=== PATIENT | male | born 1940 | race Caucasian/White ===

== ENCOUNTER 2017-04-26 20:09 | Emergency (ER) | payer MEDICARE, OTHER ==
--- NOTE | 2017-04-26 20:48 | EDM.PDOC ---
ED HPI GENERAL MEDICAL PROBLEM - General Chief Complaint: Cardiovascular Problem Stated Complaint: SOB Time Seen by Provider: 04/26/17 20:37 Source of Information: Reports: Patient, Family, RN Notes Reviewed History Limitations: Reports: No Limitations - History of Present Illness INITIAL COMMENTS - FREE TEXT/NARRATIVE: 77-year-old gentleman presents emergency department day complaint of shortness of breath, he states he's had intermittent shortness of breath over the last 4- 5 days he will have multiple events during the day makes no difference if he is exerting himself or at rest the symptoms will last for anywhere from 4-5 minutes and then resolved spontaneously just as quickly as the onset. He denies any CA history does have a history of an arrhythmia several years ago which he took medication for a short period time. - Related Data Allergies Allergy/AdvReac Type Severity Reaction Status Date / Time No Known Allergies Allergy Verified 04/26/17 20:19 Home Meds: Home Meds Aspirin [Children's Aspirin] 1 tab PO DAILY 04/26/17 [History] Atenolol [Atenolol] 1 tab PO DAILY 04/26/17 [History] Chlorthalidone 1 tab PO DAILY 04/26/17 [History] Cholecalciferol (Vitamin D3) [Vitamin D3] 1 tab PO DAILY 04/26/17 [History] Fish Oil/DHA/EPA [Fish Oil 1,200 MG] 1 tab PO DAILY 04/26/17 [History] Lisinopril [Lisinopril] 1 tab PO DAILY 04/26/17 [History] amLODIPine [Norvasc] 1 tab PO DAILY 04/26/17 [History] atorvaSTATin [Lipitor] 1 tab PO DAILY 04/26/17 [History] Past Medical History HEENT History: Reports: Cataract Cardiovascular History: Reports: Arrhythmia, High Cholesterol, Hypertension Gastrointestinal History: Reports: Hemorrhoids Musculoskeletal History: Reports: Arthritis, Other (See Below) Other Musculoskeletal History: torn rotator cuff Psychiatric History: Reports: Addiction Dermatologic History: Reports: Psoriasis - Past Surgical History HEENT Surgical History: Reports: Cataract Surgery GI Surgical History: Reports: Colonoscopy Social & Family History - Tobacco Use Smoking Status *Q: Former Smoker Used Tobacco, but Quit: Yes Month Tobacco Last Used: 0 - Alcohol Use Days Per Week of Alcohol Use: 7 Number of Drinks Per Day: 3 Total Drinks Per Week: 21 - Recreational Drug Use Recreational Drug Use: No ED ROS GENERAL - Review of Systems Review Of Systems: See Below Constitutional: Reports: No Symptoms. Denies: Diaphoresis HEENT: Reports: No Symptoms Respiratory: Reports: Shortness of Breath. Denies: Wheezing, Cough, Sputum Cardiovascular: Reports: Dyspnea on Exertion, Palpitations. Denies: Chest Pain GI/Abdominal: Reports: No Symptoms. Denies: Nausea, Vomiting : Reports: No Symptoms Musculoskeletal: Reports: No Symptoms Skin: Reports: No Symptoms Neurological: Reports: No Symptoms ED EXAM, GENERAL - Physical Exam Exam: See Below Free Text/Narrative:: General: Male, not in any distress, alert and oriented x3 HEENT: head is atraumatic normocephalic, eyes pupils equal round reactive to light, sclera clear no conjunctivitis appreciated. Ears blocked by cerumen bilaterally canals are clear. Nose no septal deviation, nares are clear, no blood present. Mouth mucosa is moist and pink no erythema or exudate noted in soft palate, tongue is midline uvula is midline, dentition is intact. Neck: Supple no thyromegaly no tracheal deviation. Nodes: Cervical nodes subclavicular nodes nontender no palpable lymphadenopathy noted. Lungs: clear to auscultation bilaterally with symmetrical respirations, no adventitious noise appreciated. CV: Regular rate and rhythm S1 and S2 appreciated no murmurs rubs or gallops noted scant irregular beat is noted consistent with PBC. Abdomen: Soft, obese, nontender, no palpable masses or organomegaly appreciated , no distention no guarding bowel sounds are present, . Neuro: Cranial nerves II through XII grossly intact Skin: Warm and dry, intact Extremities: +1 edema noted bilaterally Course - Vital Signs Last Recorded V/S: Last Vital Signs Temp 99.1 F 04/26/17 20:22 Pulse 77 04/26/17 21:32 Resp 20 04/26/17 21:32 BP 149/78 H 04/26/17 21:32 Pulse Ox 93 L 04/26/17 21:32 - Orders/Labs/Meds Orders: Active Orders 24 hr Category Date Time Status Cardiac Monitoring [RC] .As Directed Care 04/26/17 20:44 Active EKG Documentation Completion [RC] ASDIRECTED Care 04/26/17 20:45 Active Ang Chest [CT] Stat Exams 04/26/17 21:42 Taken Chest 2V [CR] Stat Exams 04/26/17 20:45 Taken Iopamidol [Isovue-370 (76%)] Med 04/26/17 22:00 Active 100 ml IV . DIRECTED Sodium Chloride 0.9% [Normal Saline] 100 ml Med 04/26/17 22:00 Active IV ASDIRECTED Sodium Chloride 0.9% [Saline Flush] Med 04/26/17 21:49 Active 10 ml FLUSH ASDIRECTED PRN EKG 12 Lead [EK] Stat Ther 04/26/17 20:45 Ordered Medication Orders Sodium Chloride (Normal Saline) 100 mls @ 3 mls/sec IV ASDIRECTED KATHYA Last Admin: 04/26/17 22:04 Dose: 3 mls/sec Iopamidol (Isovue-370 (76%)) 100 ml IV . DIRECTED [facility] Last Admin: 04/26/17 22:04 Dose: 100 ml Sodium Chloride (Saline Flush) 10 ml FLUSH ASDIRECTED PRN PRN Reason: Keep Vein Open Last Admin: 04/26/17 22:04 Dose: 10 ml Labs: Laboratory Tests 04/26/17 04/26/17 04/26/17 Range/Units 20:55 20:55 20:55 WBC 9.3 (4.5-11.0) K/uL RBC 4.59 (4.30-5.90) M/uL Hgb 15.2 H (12.0-15.0) g/dL Hct 44.6 (40.0-54.0) % MCV 97 (80-98) fL MCH 33 H (27-31) pg MCHC 34 (32-36) % Plt Count 186 (150-400) K/uL Neut % (Auto) 69 H (36-66) % Lymph % (Auto) 15 L (24-44) % [place] % (Auto) 10 H (2-6) % Eos % (Auto) 6 H (2-4) % Baso % (Auto) 1 (0-1) % PT 11.0 (9.5-12.0) sec INR 1.03 (0.80-1.20) D-Dimer, Quantitative 1280 H (0.0-400.0) ng/mL Sodium (140-148) mmol/L Potassium (3.6-5.2) mmol/L Chloride (100-108) mmol/L Carbon Dioxide (21-32) mmol/L Anion Gap (5.0-14.0) mmol/L BUN (7-18) mg/dL Creatinine (0.8-1.3) mg/dL Est Cr Clr Drug Dosing mL/min Estimated GFR (MDRD) (>60) Glucose (74-106) mg/dL Calcium (8.5-10.1) mg/dL Total Bilirubin (0.2-1.0) mg/dL AST (15-37) U/L ALT (12-78) U/L Alkaline Phosphatase (46-116) U/L Troponin I (0.000-0.056) ng/mL NT-Pro-B Natriuret Pep (5-450) pg/mL Total Protein (6.4-8.2) g/dL Albumin (3.4-5.0) g/dL Globulin (2.3-3.5) g/dL Albumin/Globulin Ratio (1.2-2.2) Urine Color Urine Appearance Urine pH (4.5-8.0) Ur Specific [place] (1.008-1.030) Urine Protein (NEGATIVE) mg/dL Urine Glucose (UA) (NEGATIVE) mg/dL Urine Ketones (NEGATIVE) mg/dL Urine Occult Blood (NEGATIVE) Urine Nitrite (NEGAITVE) Urine Bilirubin (NEGATIVE) Urine Urobilinogen (NORMAL) mg/dL Ur Leukocyte Esterase (NEGATIVE) Urine RBC (0-5) Urine WBC (0-5) Ur Epithelial Cells Amorphous Sediment Urine Bacteria Urine Mucus 04/26/17 04/26/17 Range/Units 20:55 21:41 WBC (4.5-11.0) K/uL RBC (4.30-5.90) M/uL Hgb (12.0-15.0) g/dL Hct (40.0-54.0) % MCV (80-98) fL MCH (27-31) pg MCHC (32-36) % Plt Count (150-400) K/uL Neut % (Auto) (36-66) % Lymph % (Auto) (24-44) % [place] % (Auto) (2-6) % Eos % (Auto) (2-4) % Baso % (Auto) (0-1) % PT (9.5-12.0) sec INR (0.80-1.20) D-Dimer, Quantitative (0.0-400.0) ng/mL Sodium 137 L (140-148) mmol/L Potassium 3.7 (3.6-5.2) mmol/L Chloride 100 (100-108) mmol/L Carbon Dioxide 30 (21-32) mmol/L Anion Gap 10.7 (5.0-14.0) mmol/L BUN 22 H (7-18) mg/dL Creatinine 1.0 (0.8-1.3) mg/dL Est Cr Clr Drug Dosing 64.84 mL/min Estimated GFR (MDRD) > 60 (>60) Glucose 99 (74-106) mg/dL Calcium 9.7 (8.5-10.1) mg/dL Total Bilirubin 1.3 H (0.2-1.0) mg/dL AST 33 (15-37) U/L ALT 28 (12-78) U/L Alkaline Phosphatase 70 (46-116) U/L Troponin I < 0.017 (0.000-0.056) ng/mL NT-Pro-B Natriuret Pep 318 (5-450) pg/mL Total Protein 7.9 (6.4-8.2) g/dL Albumin 3.7 (3.4-5.0) g/dL Globulin 4.2 H (2.3-3.5) g/dL Albumin/Globulin Ratio 0.9 L (1.2-2.2) Urine Color Yellow Urine Appearance Clear Urine pH 7.0 (4.5-8.0) Ur Specific [place] 1.015 (1.008-1.030) Urine Protein 30 H (NEGATIVE) mg/dL Urine Glucose (UA) Normal (NEGATIVE) mg/dL Urine Ketones Negative (NEGATIVE) mg/dL Urine Occult Blood Negative (NEGATIVE) Urine Nitrite Negative (NEGAITVE) Urine Bilirubin Negative (NEGATIVE) Urine Urobilinogen Normal (NORMAL) mg/dL Ur Leukocyte Esterase Negative (NEGATIVE) Urine RBC Not seen (0-5) Urine WBC 0-5 (0-5) Ur Epithelial Cells Rare Amorphous Sediment Rare Urine Bacteria Rare Urine Mucus Not seen Meds: Medications Generic Name Dose Route Start Last Admin Trade Name Freq PRN Reason Stop Dose Admin Sodium Chloride 100 mls @ 3 mls/sec 04/26/17 22:00 04/26/17 22:04 Normal Saline IV 3 mls/sec ASDIRECTED KATHYA Administration Iopamidol 100 ml 04/26/17 22:00 04/26/17 22:04 Isovue-370 (76%) IV 100 ml . DIRECTED KATHYA Administration Sodium Chloride 10 ml 04/26/17 21:49 04/26/17 22:04 Saline Flush FLUSH 10 ml ASDIRECTED PRN Administration Keep Vein Open Departure - Departure Time of Disposition: 22:49 Disposition: Home, Self-Care 01 Condition: Good Clinical Impression: SOB (shortness of breath) Referrals: Pedrito Salazar MD [Primary Care Provider] - Forms: ED Department Discharge Additional Instructions: Please keep your follow-up appointment with your primary care provider this week , call return to the emergency department worsening of symptoms - My Orders Last 24 Hours: My Active Orders 04/26/17 20:44 Cardiac Monitoring [RC] .As Directed 04/26/17 20:45 EKG Documentation Completion [RC] ASDIRECTED Chest 2V [CR] Stat EKG 12 Lead [EK] Stat 04/26/17 21:42 Ang Chest [CT] Stat 04/26/17 21:49 Sodium Chloride 0.9% [Saline Flush] 10 ml FLUSH ASDIRECTED PRN 04/26/17 22:00 Iopamidol [Isovue-370 (76%)] 100 ml IV . DIRECTED Sodium Chloride 0.9% [Normal Saline] 100 ml IV ASDIRECTED - Assessment/Plan Last 24 Hours: My Active Orders 04/26/17 20:44 Cardiac Monitoring [RC] .As Directed 04/26/17 20:45 EKG Documentation Completion [RC] ASDIRECTED Chest 2V [CR] Stat EKG 12 Lead [EK] Stat 04/26/17 21:42 Ang Chest [CT] Stat 04/26/17 21:49 Sodium Chloride 0.9% [Saline Flush] 10 ml FLUSH ASDIRECTED PRN 04/26/17 22:00 Iopamidol [Isovue-370 (76%)] 100 ml IV . DIRECTED Sodium Chloride 0.9% [Normal Saline] 100 ml IV ASDIRECTED Plan: Assessment Acuity = acute Site and laterality = dyspnea complicated in a patient with known history hypertension and dyslipidemia Etiology = unclear etiology Manifestations = none Location of injury = Home Lab values = CBC, CMP unremarkable d-dimer elevated at 1280 of unclear significance chest x-ray does show an opacity in the right lower lobe however CT scan does not reveal this there is no pulmonary embolism he does have a 4.1 cm dilation of the thoracic aneurysm, EKG demonstrates sinus rhythm no ST elevations or depressions PVCs are noted Plan I discussed lab work and image study results with him no etiology was noted for his shortness of breath he does have follow-up appointment with his primary care provider in 3 days all results were provided Patient was in agreement with the plan all questions were answered, they were instructed to return to the emergency department or call for worsening symptoms. This note was dictated using [employer] voice recognition software please call with any questions.
[2017-04-26] MEDS ORDERED: Sodium Chloride 0.9% 10 ML Syringe FLUSH PRN (21:49)
[2017-04-26] MEDS ORDERED: Iopamidol 755 Mg/ML 100 ML Bottle IV SCH (22:00)
[2017-04-26] MEDS ORDERED: Sodium Chloride 0.9% 100 ML IV SCH (22:00)
--- NOTE | 2017-04-27 09:37 | CR ---
Chest 2V INDICATION: sob FINDINGS: Heart size at the upper limits of normal. Shallow inspiration. Lungs are clear. Hypertrophi c changes thoracic spine.
== END 2017-04-26 23:06 | disposition home or self-care (01) ==
LOC: JP.ED 20:09
DX: R06.02 Shortness of breath (principal); E78.5 Hyperlipidemia, unspecified; I10 Essential (primary) hypertension; Z87.891 Personal history of nicotine dependence; Z79.82 Long term (current) use of aspirin; Z79.899 Other long term (current) drug therapy
CPT/HCPCS: 36415; 71020; 71275; 80053; 81001; 83880; 84484; 85025; 85379; 85610; 93005; 99285; J7030; J7050; Q9967; 93010; 99283

== ENCOUNTER 2019-06-30 10:58 | Emergency (ER) | payer MEDICARE, OTHER ==
--- NOTE | 2019-06-30 12:00 | EDM.PDOC ---
ED HPI GENERAL MEDICAL PROBLEM - General Chief Complaint: General Stated Complaint: WEAKNESS, LYMNS Time Seen by Provider: 06/30/19 11:25 Source of Information: Reports: Patient History Limitations: Reports: No Limitations - History of Present Illness INITIAL COMMENTS - FREE TEXT/NARRATIVE: This is an 79-year-old gentleman with history of hypertension who presents with concerns of dizziness. he was started on doxycycline last month after positive serologies for Lyme and developing a rash. Around this time he also noted intermittent dizziness when standing. He brought this to his doctor's attention 4 days ago, and was told to go to the ED for stroke evaluation. He reports that he intermittently has a sensation like he may pass out when he stands up from a chair. If he catches his balance and waits a moment sensation abates and he feels normal. He has no chest pain, shortness of breath, fevers or chills, urinary symptoms, abdominal pain, or other associated symptoms. No vision changes, gait instability, difficulty with coordination, weakness, or speech changes. No history of heart disease. He is currently on amlodipine, reports this dose was reduced sometime ago due to low blood pressure, he takes his BP at home and notes is usually in the 110s systolically. - Related Data Allergies Allergy/AdvReac Type Severity Reaction Status Date / Time No Known Allergies Allergy Verified 06/30/19 11:15 Home Meds: Home Meds Aspirin [Children's Aspirin] 1 tab PO DAILY 04/26/17 [History] Chlorthalidone 1 tab PO DAILY 04/26/17 [History] Cholecalciferol (Vitamin D3) [Vitamin D3] 1 tab PO DAILY 04/26/17 [History] Fish Oil/DHA/EPA [Fish Oil 1,200 MG] 1 tab PO DAILY 04/26/17 [History] Lisinopril 1 tab PO DAILY 04/26/17 [History] amLODIPine [Norvasc] 1 tab PO DAILY 04/26/17 [History] atenoloL [Atenolol] 1 tab PO DAILY 04/26/17 [History] atorvaSTATin [Lipitor] 1 tab PO DAILY 04/26/17 [History] Doxycycline [Doxycycline Hyclate] 100 mg PO BID 06/30/19 [History] Past Medical History HEENT History: Reports: Cataract Cardiovascular History: Reports: Arrhythmia, High Cholesterol, Hypertension Gastrointestinal History: Reports: Hemorrhoids Musculoskeletal History: Reports: Arthritis, Other (See Below) Other Musculoskeletal History: torn rotator cuff Psychiatric History: Reports: Addiction Dermatologic History: Reports: Psoriasis - Past Surgical History Head Surgeries/Procedures: Reports: None HEENT Surgical History: Reports: Cataract Surgery Cardiovascular Surgical History: Reports: None GI Surgical History: Reports: Colonoscopy Musculoskeletal Surgical History: Reports: None Dermatological Surgical History: Reports: None Social & Family History - Tobacco Use Smoking Status *Q: Former Smoker Used Tobacco, but Quit: Yes Month/Year Tobacco Last Used: 1998 Second Hand Smoke Exposure: No - Caffeine Use Caffeine Use: Reports: Coffee - Alcohol Use Days Per Week of Alcohol Use: 7 Number of Drinks Per Day: 3 Total Drinks Per Week: 21 - Recreational Drug Use Recreational Drug Use: No ED ROS GENERAL - Review of Systems Review Of Systems: See Below Constitutional: Reports: No Symptoms HEENT: Reports: No Symptoms Respiratory: Reports: No Symptoms Cardiovascular: Reports: No Symptoms Endocrine: Reports: No Symptoms GI/Abdominal: Reports: No Symptoms : Reports: No Symptoms Musculoskeletal: Reports: No Symptoms Skin: Reports: No Symptoms Neurological: Reports: Dizziness Psychiatric: Reports: No Symptoms Hematologic/Lymphatic: Reports: No Symptoms Immunologic: Reports: No Symptoms ED EXAM, GENERAL - Physical Exam Exam: See Below Exam Limited By: No Limitations General Appearance: Alert, No Apparent Distress Ears: Normal External Exam Nose: Normal Inspection Throat/Mouth: Normal Inspection Head: Atraumatic, Normocephalic Neck: Normal Inspection Respiratory/Chest: Lungs Clear Cardiovascular: Regular Rate, Rhythm GI/Abdominal: Soft, Non-Tender Back Exam: Normal Inspection Extremities: Normal Inspection Neurological: Oriented, CN II-XII Intact, Normal Cognition, Normal Gait, No Motor/Sensory Deficits Psychiatric: Normal Affect, Normal Mood Skin Exam: Warm, Dry Course - Vital Signs Last Recorded V/S: Last Vital Signs Temp 36.4 C 06/30/19 11:21 Pulse 92 06/30/19 11:21 Resp 13 06/30/19 11:21 BP 111/75 06/30/19 11:21 Pulse Ox 96 06/30/19 11:21 - Re-Assessments/Exams Free Text/Narrative Re-Assessment/Exam: 79-year-old male presents to the ED after referral from PCP for concern for possible stroke. Further history from the patient reveals that he is having intermittent postural dizziness. He is currently asymptomatic in the ED. His vitals and exam are normal including a normal neurologic exam. Symptoms are consistent with orthostatic hypotension. No exam exam findings to suggest stroke. We are going to hold his amlodipine and have him focus on staying well hydrated and standing up slowly. Will follow up with PCP this week for recheck. 06/30/19 12:06 Departure - Departure Time of Disposition: 11:55 Disposition: Home, Self-Care 01 Clinical Impression: Postural dizziness - Discharge Information *PRESCRIPTION DRUG MONITORING PROGRAM REVIEWED*: No *COPY OF PRESCRIPTION DRUG MONITORING REPORT IN PATIENT JAMES: No Instructions: Near-Syncope, [id number], Dizziness, [id number] Referrals: PCP,None [Primary Care Provider] - Forms: ED Department Discharge Additional Instructions: As discussed, you are having orthostatic symptoms when standing up that are not consistent with stroke. Please hold your amlodipine until you follow up with your primary doctor. Give yourself extra time when standing and be sure to stay well hydrating Return to the ER for worsening dizziness, shortness of breath, chest pain, or weakness/difficulty with speech Sepsis Event Note - Evaluation Sepsis Screening Result: No Definite Risk - Focused Exam Vital Signs: Vital Signs Temp Pulse Resp BP Pulse Ox 06/30/19 11:21 36.4 C 92 13 111/75 96 06/30/19 11:14 36.4 C 92 13 111/75 96 Date Exam was Performed: 06/30/19 Time Exam was Performed: 12:01
== END 2019-06-30 12:07 | disposition home or self-care (01) ==
LOC: JP.ED 10:58
DX: R42 Dizziness and giddiness (principal); I10 Essential (primary) hypertension; E78.00 Pure hypercholesterolemia, unspecified; Z79.82 Long term (current) use of aspirin; Z79.899 Other long term (current) drug therapy; Z87.891 Personal history of nicotine dependence
CPT/HCPCS: 99283

== ENCOUNTER 2022-05-02 16:07 | Emergency (ER) | payer MEDICARE, OTHER ==
[2022-05-02 18:58] LABS: ESTIMATED GFR 31 mL/min (>60)
[2022-05-02 19:59] LABS: CORONAVIRUS COVID-19 NAA NEGATIVE (NEGATIVE)
[2022-05-02] MEDS: Sodium Chloride 0.9% 1,000 ML IV SCH (20:15)
== END 2022-05-03 00:44 ==
LOC: JP.ED 16:07
DX: E87.1 Hypo-osmolality and hyponatremia (principal); I48.21 Permanent atrial fibrillation; I11.0 Hypertensive heart disease with heart failure; I50.9 Heart failure, unspecified; E78.00 Pure hypercholesterolemia, unspecified; M19.90 Unspecified osteoarthritis, unspecified site; Z79.01 Long term (current) use of anticoagulants; Z79.899 Other long term (current) drug therapy; Z20.822 Contact with and (suspected) exposure to COVID-19
CPT/HCPCS: 0241U; 36415; 71045; 80053; 81001; 83605; 83880; 85025; 86140; 96360; 96361; 99285; J7030

== ENCOUNTER 2022-08-27 13:05 | Observation (INO) | payer MEDICARE, OTHER ==
[2022-08-27] MEDS ORDERED: Sodium Chloride 0.9% 10 ML Syringe FLUSH PRN (13:49)
[2022-08-27] MEDS ORDERED: Acetaminophen 500 MG Tab PO ONE (14:49)
[2022-08-27] MEDS ORDERED: HYDROmorphone 0.5 MG/0.5 ML Syringe IVPUSH ONE ×2 (14:51→15:08)
[2022-08-27 14:52] LABS: ESTIMATED GFR 26 mL/min (>60)
[2022-08-27] MEDS ORDERED: Iopamidol 755 Mg/ML 100 ML Bottle IV ONE (15:02)
[2022-08-27] MEDS ORDERED: Sodium Chloride 0.9% 10 ML Syringe FLUSH ONE (15:02)
[2022-08-27] MEDS ORDERED: Sodium Chloride 0.9% 75 ML IV ONE (15:02)
[2022-08-27] MEDS ORDERED: Metoclopramide 10 MG/2 ML SDV IVPUSH ONE (15:08)
[2022-08-27 15:22] LABS: CORONAVIRUS COVID-19 NAA NEGATIVE (NEGATIVE)
[2022-08-27] MEDS ORDERED: Sodium Chloride 0.9% 1,000 ML IV SCH ×2 (16:15→18:44)
[2022-08-27] MEDS ORDERED: Divalproex Sodium Delayed-Release 125 MG Cap.Sprink PO ONE (16:46)
[2022-08-27] MEDS ORDERED: Magnesium Hydroxide 400 MG/5 ML Susp 30 ML Cup PO PRN (18:44)
[2022-08-27] MEDS ORDERED: Ondansetron 4 MG/2 ML SDV IV PRN (18:44)
[2022-08-27] MEDS ORDERED: Acetaminophen 325 MG Tab PO PRN (18:44)
[2022-08-27] MEDS ORDERED: HYDROmorphone 1 MG/ML Syringe IVPUSH PRN (18:44)
[2022-08-27] MEDS ORDERED: oxyCODONE 5 MG Tab PO PRN (18:44)
[2022-08-27] MEDS ORDERED: Haloperidol Lactate 5 MG/ML SDV IVPUSH PRN (18:44)
[2022-08-27] MEDS ORDERED: Ondansetron 4 MG Tab.DIS PO PRN (18:44)
[2022-08-27] MEDS: Melatonin 3 MG Tab PO SCH (20:08)
[2022-08-27] MEDS ORDERED: rOPINIRole 0.5 MG Tab PO SCH (21:00)
[2022-08-27] MEDS ORDERED: Apixaban 2.5 MG Tab PO SCH (21:00)
[2022-08-28] MEDS ORDERED: Allopurinol 100 MG Tab PO SCH (09:00)
[2022-08-28] MEDS: ROPINIROLE 0.5 MG PO SCH (09:52)
[2022-08-28] MEDS: ALLOPURINOL 300MG TAB (PTOM) PO SCH (09:53)
[2022-08-28] MEDS: atorvaSTATin 10 MG Tab (PTOM) PO SCH (09:54)
[2022-08-28] MEDS: Apixaban 2.5 MG Tab (PTOM) PO SCH ×3 (09:54→20:20)
[2022-08-28] MEDS: Folic Acid 1 MG Tab (PTOM) PO SCH (09:55)
[2022-08-28] MEDS: Metoprolol Succinate 50 MG Tab.ER (PTOM) PO SCH (09:56)
[2022-08-28] MEDS: Divalproex Sodium Delayed-Release 125 MG Cap.Sprink PO SCH ×3 (09:56→18:04)
[2022-08-28] MEDS: Thiamine 100 MG Tab PO SCH (09:56)
[2022-08-28] MEDS: Melatonin 3 MG Tab PO SCH (20:27)
[2022-08-28] MEDS ORDERED: ROPINIROLE 0.5 MG PO SCH (21:00)
[2022-08-29] MEDS: ROPINIROLE 0.5 MG PO SCH (08:19)
[2022-08-29] MEDS: Divalproex Sodium Delayed-Release 125 MG Cap.Sprink PO SCH (08:19)
[2022-08-29] MEDS: ALLOPURINOL 300MG TAB (PTOM) PO SCH (08:19)
[2022-08-29] MEDS: Apixaban 2.5 MG Tab (PTOM) PO SCH (08:19)
[2022-08-29] MEDS: Thiamine 100 MG Tab PO SCH (08:19)
[2022-08-29] MEDS: Metoprolol Succinate 50 MG Tab.ER (PTOM) PO SCH (08:20)
[2022-08-29] MEDS: atorvaSTATin 10 MG Tab (PTOM) PO SCH (08:20)
[2022-08-29] MEDS: Folic Acid 1 MG Tab (PTOM) PO SCH (08:21)
== END 2022-08-29 11:20 | disposition home health service (06) ==
LOC: JP.ED 13:05 → JP.ICU 18:44 → JP.ED 19:07
PROVIDERS: ADMIT Internal Medicine; ATTEND Internal Medicine
DX: F05 Delirium due to known physiological condition (principal); R51.9 Headache, unspecified; I13.0 Hypertensive heart and chronic kidney disease with heart failure and stage 1 through stage 4 chronic kidney disease, or unspecified chronic kidney disease; N18.32 Chronic kidney disease, stage 3b; I50.30 Unspecified diastolic (congestive) heart failure; I48.21 Permanent atrial fibrillation; E78.00 Pure hypercholesterolemia, unspecified; I25.10 Atherosclerotic heart disease of native coronary artery without angina pectoris; F10.20 Alcohol dependence, uncomplicated; Z20.822 Contact with and (suspected) exposure to COVID-19; Z87.891 Personal history of nicotine dependence; Z79.01 Long term (current) use of anticoagulants; Z79.899 Other long term (current) drug therapy
CPT/HCPCS: 0241U; 36415; 70450; 70496; 70498; 71045; 80048; 80053; 81001; 82140; 82947; 83605; 83880; 84145; 84484; 85025; 85027; 85610; 85730; 86140; 93005; 96361; 96374; 96375; 99223; 99233; 99239; 99285; A9270; G0378; J1170; J1630; J1790; J2765; J3490; J7030; Q9967